=== PATIENT | female | born 1945 | race African-American/Black ===

== ENCOUNTER 2017-05-25 13:29 | Emergency (ER) | payer OTHER, MEDICARE ==
[2017-05-25 13:36] VITALS: BP 138/75
[2017-05-25] MEDS ORDERED: ACETAMINOPHEN 325 MG TABLET PO ONE (14:07)
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
[2017-05-25] MEDS ORDERED: ONDANSETRON 4 MG TAB.RAPDIS PO ONE (14:54)
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
== END 2017-05-25 15:22 | disposition home or self-care (01) ==
LOC: ER 13:29
DX: S29.019A Strain of muscle and tendon of unspecified wall of thorax, initial encounter (principal); S16.1XXA Strain of muscle, fascia and tendon at neck level, initial encounter; G44.89 Other headache syndrome; V87.7XXA Person injured in collision between other specified motor vehicles (traffic), initial encounter
CPT/HCPCS: 99284; 73502; 73030; 72070; 70450; 72125; S0119

== ENCOUNTER 2019-07-05 22:31 | Emergency (ER) | payer MEDICARE ==
[2019-07-05 22:38] VITALS: BP 131/62
== END 2019-07-05 23:47 | disposition left against medical advice (07) ==
LOC: ER 22:31
DX: Z53.21 Procedure and treatment not carried out due to patient leaving prior to being seen by health care provider (principal)